=== PATIENT | male | born 1945 | race Caucasian/White ===

== ENCOUNTER → 2017-08-04 | Outpatient (CLI) | payer MEDICARE, OTHER ==
[~2017-08-04] MED LIST: ALB17R; ALBU8.5H IH; ASPI-715 PO; ATOR10TA24 PO; ATR80PT PO; BECL7.3A7 IH; CEP500 PO; CHOL200021 PO; CLO75 PO; FENO48PT PO; FLU220R IH; FLUINH; GABA-503 PO; GLY25 PO; HUMALOG SC; INSU100C14 SQ; INSU100I30 SQ; LANI SC; LANI SUBQ; LOR5/325 PO; METO25TA93 PO; MULT-1335 PO; NOVOLOG SUBQ; TADA20TA33 PO; VALS1TAB64 PO
== END ==
LOC: LAB 10:46
PROVIDERS: ATTEND Internal Medicine
DX: E11.9 Type 2 diabetes mellitus without complications (principal)
CPT/HCPCS: 36415; 83036

== ENCOUNTER → 2017-11-14 | Outpatient (CLI) | payer MEDICARE, OTHER ==
[~2017-11-14] MED LIST changes: +ATOR40TA69 PO; +FENO145T36 PO
[2017-11-14 11:37] LABS: PLATELET COUNT, AUTOMATED 265 K/uL (150-450)
== END ==
LOC: LAB 11:16
PROVIDERS: ATTEND Family Medicine
DX: E11.9 Type 2 diabetes mellitus without complications (principal); I10 Essential (primary) hypertension
CPT/HCPCS: 36415; 82040; 82247; 82310; 82374; 82435; 82565; 82947; 83036; 84075; 84132; 84155; 84295; 84450; 84460; 84520; 85025

== ENCOUNTER → 2017-11-14 | Outpatient (CLI) | payer MEDICARE, OTHER | LOC: LAB 11:00 | PROVIDERS: ATTEND Family Medicine | DX: Z02.9 Encounter for administrative examinations, unspecified (principal) ==

== ENCOUNTER → 2018-03-16 | Outpatient (CLI) | payer MEDICARE, OTHER ==
[~2018-03-16] MED LIST changes: +LOSA-51 PO; +NEED-653 IJ; +VALS1TAB67 PO
== END ==
LOC: LAB 10:55
PROVIDERS: ATTEND Family Medicine
DX: E11.9 Type 2 diabetes mellitus without complications (principal); I10 Essential (primary) hypertension
CPT/HCPCS: 36415; 82040; 82247; 82310; 82374; 82435; 82565; 82947; 83036; 84075; 84132; 84155; 84295; 84450; 84460; 84520

== ENCOUNTER → 2018-10-23 | Outpatient (CLI) | payer MEDICARE, OTHER ==
[~2018-10-23] MED LIST changes: +ACET500T68 PO; +ASPI-757 PO; +ATOR20TA22 PO; +CHOL500025 PO; -GABA-503 PO; +GABA-533 PO
[2018-10-23 11:11] LABS: PLATELET COUNT, AUTOMATED 266 K/uL (150-450)
== END ==
LOC: LAB 10:38
PROVIDERS: ATTEND Family Medicine
DX: E11.9 Type 2 diabetes mellitus without complications (principal); I10 Essential (primary) hypertension
CPT/HCPCS: 36415; 82040; 82247; 82310; 82374; 82435; 82465; 82565; 82947; 83036; 83718; 84075; 84132; 84155; 84295; 84450; 84460; 84478; 84520; 85025

== ENCOUNTER → 2018-12-12 | Outpatient (CLI) | payer MEDICARE, OTHER ==
[~2018-12-12] MED LIST changes: +REGADENOSON 0.4 MG/5 ML SYR ONE
== END ==
LOC: NUC 12:20
PROVIDERS: ATTEND Internal Medicine Cardiovascular Disease
DX: I45.10 Unspecified right bundle-branch block (principal)
CPT/HCPCS: 93017; J2785

== ENCOUNTER → 2018-12-12 | Outpatient (CLI) | payer MEDICARE, OTHER ==
[~2018-12-12] MED LIST changes: -REGADENOSON 0.4 MG/5 ML SYR ONE
--- NOTE | 2018-12-12 17:20 | RADIOLOGY IMAGING REPORT ---
FACILITY: [facility] - [place] PATIENT NAME: Fredi Morris : 1945 MR: [id number] V: [id number] EXAM DATE: ORDERING PHYSICIAN: FABI MCKENZIE TECHNOLOGIST: Location: [facility] [place] Patient: Fredi Morris : 1945 Visit/Account:[id number] Date of Sevice: 12/12/2018 EXAMINATION: Single isotope SPECT imaging with Regadenoson infusion and gated SPECT imaging. DATE OF EXAMINATION: December 12, 2018. DATE OF INTERPRETATION: December 12, 2018. REQUESTING PHYSICIAN: FABI MCKENZIE. INDICATION: The patient is a 73-year-old male evaluated for dyspnea. PROCEDURE: After informed consent the patient received an intravenous injection of 10.5 mCi of Tc-99 m sestamibi followed at an appropriate time interval by rest imaging. The patient then subsequently received an intravenous infusion of 0.4 mg of Regadenoson per protocol without complication. Resting heart rate was 74 bpm with a peak heart rate of 85 bpm. Blood pressure at rest was 162 / 74 and fol lowing infusion was 162 / 74. Baseline EKG demonstrates normal sinus rhythm with a right bundle bran ch block. There were no diagnostic EKG changes of ischemia following infusion. Symptoms were nonspe cific. The patient then received an intravenous injection of 26.6 mCi of Tc-99m sestamibi followed b y stress imaging. RAW DATA: Examination of the summed raw data revealed a good quality study. MYOCARDIAL PERFUSION: The tomographic images demonstrate normal perfusion both at rest and at stress . GATED IMAGES: The gated images demonstrate a hyperdynamic ejection fraction at 70% or greater with n ormal wall motion. IMPRESSION: 1. Baseline EKG shows normal sinus rhythm with a right bundle branch block and there are no diagnost ic changes during stress. 2. Normal myocardial perfusion scan. 3. Hyperdynamic LV systolic function; LVEF greater than 70%. 4. Based on the results of this exam, the patient appears to be at low risk for future cardiovascular events. Report Dictated By: Jayden Churchill MD at 12/12/2018 5:13 PM Report E-Signed By: Jayden Churchill MD at 12/12/2018 5:16 PM WSN:[id number]
== END ==
LOC: US 00:34
PROVIDERS: ATTEND Internal Medicine Cardiovascular Disease
DX: I45.10 Unspecified right bundle-branch block (principal)
CPT/HCPCS: 78452; 93306; A9500